=== PATIENT | female | born 1975 | race Caucasian/White ===

== ENCOUNTER 2016-09-15 23:46 | Emergency (ER) | payer MEDICAID ==
[~2016-09-15] VITALS: Ht 152.4 cm; Wt 60.5 kg
[~2016-09-15 23:46] MED LIST: DIAZ-90 PO; PRENAT PO
[2016-09-15 23:54] VITALS: Ht 152.4 cm; Wt 60.5 kg
[2016-09-16] MEDS ORDERED: KETOROLAC 60 MG INJ IM STA (01:28)
[2016-09-16] MEDS ORDERED: HYDR-906 PO (01:42)
[2016-09-16] MEDS ORDERED: CYCL-319 PO (01:42)
[2016-09-16] MEDS ORDERED: IBUP-1542 PO (01:42)
--- NOTE | 2016-09-16 01:49 | ERD ---
ER Documentation Chief Complaint Date/Time DATE: 09/16/16 TIME: 01:45 Chief Complaint LOWER BACK PAIN X 3-4 DAYS. HPI 41-year-old female presents here in emergency department for complaints of lower back pain for 4 days. Patient was bending forward, accidentally twisted her back. She describes the pain as sharp pain, 6/10 scale, worse upon movement. Patient did not take any medication to help with symptoms. Patient denies any incontinence. Patient denies any fever or chills. Patient denies hematuria or dysuria. ROS All systems reviewed and are negative except as per history of present illness. Medications Home Meds Active Scripts Hydrocodone/Acetaminophen (Knox 5-325 Tablet) 1 Each Tablet, 1 TAB PO Q6H Y for PAIN, #20 TAB Prov:BEN OAKLEY [employer] APPRENTICE 09/16/16 Cyclobenzaprine Hcl* (Cyclobenzaprine Hcl*) 10 Mg Tablet, 10 MG PO TID, #15 TAB Prov:BEN OAKLEY NP 09/16/16 Ibuprofen* (Motrin*) 600 Mg Tab, 600 MG PO Q6H Y for PAIN AND OR ELEVATED TEMP, #30 TAB Prov:BEN OAKLEY [employer] OPERATOR APPRENTICE 09/16/16 Diazepam* (Valium*) 5 Mg Tablet, 5 MG PO QHS Y for MUSCLE SPASMS, #5 TAB Prov:MARCO CRESPO DO 08/26/16 Reported Medications Multivit/Min/Fol Ac/Iron/Pren* ( S*) 1 Tab Tab, 1 TAB PO DAILY, TAB 04/01/15 Allergies Allergies: Coded Allergies: No Known Allergies (Verified Allergy, Unknown, 04/14/15) PMhx/Soc History of Surgery: Yes (tubal ligation) Anesthesia Reaction: No Hx Neurological Disorder: No Hx Respiratory Disorders: No Hx Cardiac Disorders: No Hx Psychiatric Problems: No Hx Miscellaneous Medical Probl: No Hx Alcohol Use: No Hx Substance Use: No Hx Tobacco Use: No Smoking Status: Never smoker FmHx Family History: No coronary disease, No diabetes, No other Physical Exam Vitals Vital Signs Date Time Temp Pulse Resp B/P Pulse Ox O2 Delivery O2 Flow Rate FiO2 09/15/16 23:54 96.3 89 16 124/76 100 Physical Exam GENERAL: The patient is well developed and appropriate for usual state of health, in no apparent distress. CHEST: Clear to auscultation bilaterally. There are no rales, wheezes or rhonchi. HEART: Regular rate and rhythm. No murmurs, clicks, rubs or gallops. No S3 or S4. ABDOMEN: Soft, nontender and nondistended. Good bowel sounds. No rebound or guarding. No gross peritonitis. No gross organomegaly or masses. No Perez sign or McBurney point tenderness. BACK: No midline or flank tenderness. Muscle spasms noted in the paraspinal aspect of the lumbar spine. EXTREMITIES: Equal pulses bilaterally. There is no peripheral clubbing, cyanosis or edema. No focal swelling or erythema. Full range of motion. Grossly neurovascularly intact. NEURO: Alert and oriented. Cranial nerves 2-12 intact. Motor strength in all 4 extremities with 5/5 strength. Sensation grossly intact. Normal speech and gait. SKIN: There is no apparent rash or petechia. The skin is warm and dry. HEMATOLOGIC AND LYMPHATIC: There is no evidence of excessive bruising or lymphedema. No gross cervical, axillary, or inguinal lymphadenopathy. Results 24 hrs Current Medications Medications (Trade) Dose Ordered Sig/Myra Route PRN Reason Start Time Stop Time Status Last Admin Dose Admin Ketorolac Tromethamine (Toradol) 60 mg ONCE STAT IM 09/16/16 01:28 09/16/16 01:29 DC 09/16/16 01:42 Patient was given medication for pain here in emergency department, after treatment, patient verbalized feeling much better. Patient's pain is improved. Urine test is negative. Procedures/MDM Medical Decision Making: Patient's pain is most likely consistent with a back muscle strain. There is no suspicion for neurovascular compromise. Patient has intact sensation and circulation of the distal extremities. There is low suspicion for septic arthritis. Patient does not have any fever. Radiology exam is not indicated at this time. Disposition: Home. Patient is given prescription for ibuprofen for pain. Patient was advised to rest, avoid heavy lifting. Patient was advised that if symptoms are worse, numbness, tingling, high fever, unable to move joint, worsening symptoms, to return to emergency department immediately. Otherwise, patient is advised to follow up with the primary care doctor in 5-7 days for reevaluation of symptoms. Departure Diagnosis: Primary Impression: Back pain Back pain location: low back pain Chronicity: acute Back pain laterality: bilateral Sciatica presence: without sciatica Qualified Code: M54.5 - Acute bilateral low back pain without sciatica Condition: Stable Patient Instructions: Back Pain (Acute Or Chronic) BEN OAKLEY NP Sep 16, 2016 01:49
[2016-09-16 02:01] VITALS: BP 124/76; PULSE 90; RESP 16; TEMP 96.3
== END 2016-09-16 01:55 | disposition home or self-care (01) ==
LOC: FTE 23:46
DX: S39.92XA Unspecified injury of lower back, initial encounter (principal); X50.1XXA Overexertion from prolonged static or awkward postures, initial encounter; Y92.9 Unspecified place or not applicable
CPT/HCPCS: 96372; J1885; Z7502